=== PATIENT | male | born 1950 | race Caucasian/White ===

== ENCOUNTER 2016-10-13 07:39 | Inpatient (IN) | payer OTHER ==
--- NOTE | 2016-10-07 17:44 | GHP ---
[f rep st] PREOP HISTORY AND PHYSICAL DATE OF ADMISSION: 10/13/2016 The patient will be an a.m. admission for surgery at [facility] on Thursday, October 13, 2016. PROBLEM: Status post infected left total hip arthroplasty. HISTORY OF PRESENT ILLNESS: The patient is a 66-year-old man on whom I originally performed a left t otal hip arthroplasty on January 28, 2015. In February of 2016, he developed a groin abscess on the left si de. He had an ultrasound aspiration of the groin abscess which was positive for E coli. He received a course of oral antibiotics without any improvement. Eventually, the groin pain progressed to hip pain. A subsequent aspiration of the hip joint was positive for E coli. On March 24, 2016, he underw ent surgery for the infected left total hip. His implants were removed, and I inserted a temporary a ntibiotic-impregnated endoprosthesis. His organism was E coli. It was sensitive to all antibiotics. He was treated for 6 weeks with ceftriaxone. He was followed by Dr. Alphonse Nunes. Following the intr avenous ceftriaxone, he underwent 6 weeks of oral antibiotics. His wounds have healed. In addition to debridement and implant removal, Dr. Wily Campoverde did drainage of a psoas abscess anteriorly. Hi s lab work has normalized. He has had 2 aspirations of the left hip which were culture-negative. He is having moderate pain in the hip with ambulation. By the best available information, I think his hip is infection-free. He will undergo revision surgery. PAST MEDICAL HISTORY: He is treated for anxiety disorder. He has chronic low back pain. He has bee n treated for necrotizing fasciitis of his left upper extremity. No history of pulmonary embolism, h eart disease, or DVT. CURRENT MEDICATIONS: Adderall 20 mg per day. He recently started on an androgen gel. Valium 10 mg as needed. Hydrochlorothiazide 25 mg as needed for hypertension. He is taking morphine IR and morph ine extended release for chronic low back pain. He is followed by the [facility] at the hospital. DRUG ALLERGIES: None. SOCIAL HISTORY: The patient is . He lives in [place], [place]. He is retired. He is smoking a pipe. Moderate alcohol consumption. FAMILY HISTORY: Positive for cancer. PHYSICAL EXAMINATION: GENERAL: He is a frail-appearing man. Height 5 feet 9 inches. Weight 140 po unds. BMI 20.7. He has a cachectic appearance. EYES: The conjunctivae and sclerae are clear. His pupils are equal. MOUTH: Fair oral hygiene. CH EST: Clear. HEART: Regular rhythm. No murmurs. EXTREMITIES: Pertinent findings limited to his l eft hip. His wounds are completely healed. He has 110 degrees of hip flexion. IMPRESSION ON ADMISSION: 1. Status post infected left total hip arthroplasty. He has a temporary prosthesis. He will underg o revision surgery. 2. Chronic back pain and chronic pain syndrome, on long-term narcotics. 3. Anxiety disorder. 4. History of necrotizing fasciitis of the left upper extremity. PLAN: He will undergo revision surgery. Depending on the findings at the time of revision and how d ifficult it is to get the temporary prosthesis out, I am either going to use a cemented femoral stem with antibiotic-impregnated cement or a modular oriental orthodox revision femoral stem. The surgery has been described to the patient and his including the risks, complications, expect ations, and recovery time. I have advised him that this is more complicated surgery than his origina l operation and it has higher risks and complications. All their questions have been answered, and susi espinoza consents to surgery. /[id number]/MODL
--- NOTE | 2016-10-11 11:17 | CPEKG ---
Heart Rate: 79 RR Interval: 759 P-R Interval: 152 QRSD Interval: 74 QT Interval: 352 QTC Interval: 404 P [place]: 3 QRS [place]: -48 T Wave [place]: 53 EKG Severity - ABNORMAL ECG - EKG Impression: SINUS RHYTHM EKG Impression: LEFT ANTERIOR FASCICULAR BLOCK Electronically Signed By: Ivan Rodriguez 11-Oct-2016 15:42:25
[2016-10-11 11:45] LABS: % IMMATURE GRANULYOCYTES 0.2 % (0.0-1.1); ABSOLUTE IMMATURE GRANULOCYTES 0.01 10^3/uL (0.00-0.10); ADD DIFF? NO; ADD MORPH? NO; ADD SCAN? NO; ATYPICAL LYMPHOCYTE FLAG 20 (0-99); FRAGMENT RBC FLAG 0 (0-99); HEMATOCRIT 37.6 % (40.0-51.0); HEMOGLOBIN 12.8 g/dL (13.7-17.5); LEFT SHIFT FLG 0 (0-99); LIPEMIA HEMOLYSIS FLAG 90 (0-99); MEAN CELL HEMOGLOBIN 32.3 pg (27.9-34.1); MEAN CELL VOLUME 94.9 fL (81.5-99.8); MEAN PLATELET VOLUME 8.8 fL (8.7-11.7); PLATELET CLUMPS FLAG 0 (0-99); PLATELET COUNT 182 10^3/uL (150-400); RED BLOOD CELL COUNT 3.96 10^6/uL (4.40-6.38); RED CELL DISTRIBUTION WIDTH 13.8 % (11.5-15.2)
[2016-10-11 11:56] LABS: ANION GAP 8 mEq/L (8-16); CALCIUM 9.2 mg/dL (8.5-10.4); CARBON DIOXIDE 29 mEq/l (22-31); CHLORIDE 100 mEq/L (97-110); CREATININE 1.1 mg/dL (0.7-1.3); GLOMERULAR FILTRATION RATE > 60; POTASSIUM 4.3 mEq/L (3.5-5.2); SODIUM 137 mEq/L (134-144)
[2016-10-11 12:22] LABS: GLUCOSE 100 mg/dL (70-100)
[~2016-10-13 07:39] MED LIST: ACETAMINOPHEN 325 MG TAB ONE; ACETAMINOPHEN 325 MG TAB PO ONE; CEFAZOLIN 2 GM/DEXTR 100 ML IV ONE; CEFAZOLIN 2 GM/DEXTROSE/100 ML BAG IV ONE; CHLORHEXIDINE GLUC HIBICLENS 118 ML BTL TP ONE; DEXAMETHASONE 4 MG/ML VIAL IVP ONE; DEXAMETHASONE 4 MG/ML VIAL ONE; FAMOTIDINE 20 MG TAB ONE; FAMOTIDINE 20 MG TAB PO ONE; NS IV ONE; POVIDONE-IODINE 20 ML in SODIUM CL IRRIG SOLUTION 500 ML IRR ONE; ROPI/epiNEPH/KETOROLAC JOINT COCKTAIL IU ONE; TRANEXAMIC ACID IV ONE
[2016-10-13] MEDS ORDERED: LIDOCAINE 1% 5 ML SDV ID PRN (07:52)
[2016-10-13] MEDS ORDERED: LR 1,000 ML IV ONE (07:52)
[2016-10-13] MEDS ORDERED: SKIN ADHESIVE (DERMABOND) 1 EACH TP ONE (09:17)
[2016-10-13] MEDS ORDERED: ceFAZolin 1 GM/5 ML SYR ONE (09:18)
[2016-10-13] MEDS ORDERED: MIDAZOLAM 2 MG/2 ML VIAL ONE (09:26)
[2016-10-13] MEDS ORDERED: PROPOFOL/EMULSION 500 MG/50 ML BOTTLE IV ONE (09:43)
[2016-10-13] MEDS ORDERED: KETAMINE 100 MG/10 ML SYR IVP ONE (09:43)
[2016-10-13] MEDS ORDERED: PROPOFOL 200 MG/20 ML VIAL ONE ×2 (09:43→11:31)
[2016-10-13] MEDS ORDERED: DEXAMETHASONE 4 MG/ML VIAL ONE (10:05)
[2016-10-13] MEDS ORDERED: ONDANSETRON 4 MG/2 ML VIAL ONE (10:05)
[2016-10-13] MEDS ORDERED: GLYCOPYRROLATE 0.2 MG/1 ML VIAL ONE (10:05)
[2016-10-13] MEDS ORDERED: ROCURONIUM 50 MG/5 ML VIAL ONE (10:05)
[2016-10-13] MEDS ORDERED: HYDROmorphONE/DILAUDID 2 MG/ML SYR ONE ×4 (10:19→12:37)
[2016-10-13] MEDS ORDERED: SUGAMMADEX SODIUM 200 MG/2 ML VIAL IVP ONE (11:44)
--- NOTE | 2016-10-13 11:48 | POSTOPPROG ---
Post Op Note Date of Operation: 10/13/16 Surgeon: Demetrius Holloway Child Care Specialist: Johnny/Mily Anesthesiologist: Maynor Anesthesia: GET(General Endotracheal) Post-op Diagnosis: s/p infected MAYELIN Procedure: second stage revision MAYELIN Inf/Abcess present in the surg proc area at time of surgery?: No EBL: 100500
[2016-10-13] MEDS ORDERED: DIAZEPAM 10 MG TAB PO PRN (11:54)
[2016-10-13] MEDS ORDERED: PROMETHAZINE HCL 25 MG/ML VIAL IVP PRN (11:56)
[2016-10-13] MEDS ORDERED: oxyCODONE IR 5 MG TAB PO PRN (11:56)
[2016-10-13] MEDS ORDERED: MAGNESIUM HYDROXIDE 30 ML UDCUP PO PRN (11:56)
[2016-10-13] MEDS ORDERED: TEMAZEPAM 15 MG CAP PO PRN (11:56)
[2016-10-13] MEDS ORDERED: BISACODYL 10 MG SUPP PR PRN (11:56)
[2016-10-13] MEDS ORDERED: LACTULOSE 20 GM/30 ML UDCUP PO PRN (11:56)
[2016-10-13] MEDS ORDERED: KETOROLAC 30 MG/1 ML SDV IVP PRN (11:56)
[2016-10-13] MEDS ORDERED: PROMETHAZINE HCL 25 MG SUPPR PR PRN (11:56)
[2016-10-13] MEDS ORDERED: DIPHENOXYLATE/ATROPINE LOMOTIL 1 TAB PO PRN (11:56)
[2016-10-13] MEDS ORDERED: PHARMACY PAIN CONSULT 1 EA MISC PRN (11:56)
[2016-10-13] MEDS ORDERED: diphenhydrAMINE 25 MG CAP PO PRN (11:56)
[2016-10-13] MEDS ORDERED: METOCLOPRAMIDE 10 MG/2 ML VIAL IVP PRN (11:56)
[2016-10-13] MEDS ORDERED: ONDANSETRON 4 MG/2 ML VIAL IVP PRN (11:56)
[2016-10-13] MEDS ORDERED: ONDANSETRON DISINTEGRATING 4 MG TAB PO PRN (11:56)
[2016-10-13] MEDS ORDERED: POLYETHYLENE GLYCOL 3350 17 GM PKT PO PRN (11:56)
[2016-10-13] MEDS ORDERED: NS 500 ML IV PRN (11:56)
[2016-10-13] MEDS ORDERED: LR 1,000 ML IV SCH (12:00)
[2016-10-13] MEDS ORDERED: HYDROmorphONE/DILAUDID 1 MG/ML SYR ONE (12:21)
[2016-10-13] MEDS ORDERED: fentaNYL 100 MCG/2 ML INJ ONE ×2 (12:28→12:37)
--- NOTE | 2016-10-13 12:52 | GOP ---
[f rep st] OPERATIVE REPORT DATE OF OPERATION: 10/13/2016 SURGEON: Demetrius Holloway MD PLUG ASSEMBLER: Waldemar Turner and Rodger Minor. ANESTHESIA: General. ANESTHESIOLOGIST: Dr. Litzy Mcguire. PREOPERATIVE DIAGNOSIS: Status post infected left total hip arthroplasty. POSTOPERATIVE DIAGNOSIS: Status post infected left total hip arthroplasty. PROCEDURE PERFORMED: 10/13/2016: Second-stage revision of infected left total hip arthroplasty. FINDINGS: SPECIMENS: In addition to culturing the fluid, I removed some of the fibrous tissue in the medullary canal of the femur and also sent that for aerobic and anaerobic cultures. ESTIMATED BLOOD LOSS: About 400 mL. DESCRIPTION OF PROCEDURE: The patient was given 2 g of IV Ancef preoperatively within 60 minutes of surgery. He also received IV tranexamic acid at a dose of 20 mg/kg. He was placed on the operating room table and given general anesthesia by Dr. Litzy Mcguire. A Ordonez catheter was not used. He wore a SIDNEY stocking and SCD on the nonoperative leg. He was rolled to the right lateral decubitus positio n. The position was secured with the pegboard table attachment. An axillary roll was used and all p ressure points were carefully padded. He has a painful right shoulder with a deficient rotator cuff. I was very careful about how I positioned him and how I padded his arm and shoulder. I was careful to lock his pelvis in a rigid vertical position. His perineum was isolated with plastic adhesive dr quigley. The left hip and left lower extremity were prepped with ChloraPrep. They were draped free usi ng sterile sheets, stockinette, and Ioban plastic drape. The World Health Organization time-out was performed to verify the correct surgical side and the [facility] patient identity. The [place] time-out was also performed. I reopened his original surgical incision which was about 6 or 7 inches long. This was a posterior l ateral incision. Subcutaneous tissues were sharply divided and hemostasis was obtained using electro cautery. He had a very thin layer of subcutaneous fat. His fascia giuseppe was identified and split tiffany ng the axis of its fibers. I curved posteriorly and proximally and split the fascia of the gluteus m aximus and bluntly split the muscle fibers. The fascia giuseppe and the gluteus zan were scarred jose n to the lateral greater trochanter area. This had to be dissected free and mobilized. I then devel oped my dissection right along the posterior margin of the greater trochanter. His sciatic nerve was encompassed in scar tissue posteriorly. I did not make any effort to isolate it or expose it, but I did keep my dissection away from its location. I divided the scarred external rotators and the post erior capsule as a single layer. There was a large quantity of clear yellow synovial fluid in the hi p joint. This fluid was cultured for aerobic and anaerobic organisms and for Gram stain. An 8 inch Steinmann pin was inserted vertically into the ilium superior to the acetabulum. A 10/10 inc h drill bit was inserted vertically into the greater trochanter and parallel to the 1st pin. The dis tance between the two was measured for leg length reference. The temporary prosthetic head was dislo cated posteriorly. I immobilized some of the capsule in order to expose the proximal end of the femu r. I used a bone tamp and a mallet against the undersurface of the temporary prosthesis. I was able to wiggle it loose. I then with careful tapping was able to back out the temporary prosthesis. Whe n I inserted it, I only put a small cement mantle around the proximal portion. It looked like most o f the cement came out on the stem of the temporary prosthesis. There was a small amount of cement di stally. I used the reverse cutting curettes to remove that cement. I was using the [employer] modular anabaptist stem system. I reamed distally to 19 mm. I then inserte d the 19 mm diameter x 155 mm distal component. At this point, I went back to the acetabulum. Appropriate retractors were inserted to expose the josette tabulum. I removed scarred capsule from around the periphery of the acetabulum. I then started ream ing the acetabulum beginning at 58 mm. It was not necessary to deepen it. I was simply enlarging it and trying to get to a fresh raw cancellous surface. I ended up reaming it up to 67 mm. I selected the 68 mm Millen Trident hemispherical titanium shell. This was tapped securely into place in the proper degree of inclination and anteversion. It was a good tight fit. I inserted a 30 mm, a 25 mm and a 20 mm supplemental fixation screw. A flush trial liner was inserted. I then went back and fin ished the femur. I reamed the proximal femoral canal. I selected the 25 mm proximal component with a +10 mm length. This was tapped securely onto the distal component. I dialed in between 10 and 15 degrees of antever jeramy. I did a trial reduction with a +5 mm neck, 36 mm head. The hip was very stable anteriorly and posteriorly. I like the amount of anteversion. He was short preoperatively, and I was intentionall y lengthening him. I then went back and inserted the actual acetabular liner. This had an outside diameter of 68 mm and an inside diameter of 36 mm. The locking screw was inserted to lock the proximal portion of the femoral component to the distal co mponent. I did 1 final trial reduction and confirmed that the +5 mm neck length with the 36 mm head was the proper combination. The actual 36 mm Millen Otwell chrome LFIT head component with a +5 mm neck length was tapped secure ly onto the clean trunnion. The wound and the acetabulum were thoroughly irrigated and cleaned. The hip was reduced 1 final time. I did 1 final check for stability and length and found it very suitab le. The wound was thoroughly irrigated with a dilute Betadine solution. 40 mL of the joint anesthetic co cktail were injected into the subcutaneous tissues around the incision and in the deep musculature. I repaired the combined layer of external rotators and scarred capsule with two #2 FiberWire sutures tied through drill holes in the greater trochanter. His fascia giuseppe was closed with a running #2 bar bed Ethicon Stratafix PDO suture. The subcutaneous tissues were closed with a running 0 barbed Ethic on Stratafix Monoderm suture. The skin was closed with a running 3-0 barbed Ethicon Stratafix Monode rm subcuticular suture. The skin edges were reapproximated and sealed with Dermabond glue. The woun d was covered with a strip of Telfa and everything was held in place with a piece of clear plastic Te gaderm. A SIDNEY stocking and SCD were placed on his left lower extremity. He wore stocking and SCD on the oppo site leg during the procedure. An abduction pillow was placed between his knees. He was awakened fr om anesthesia and rolled to the supine position on his gurney. He was taken to PACU in satisfactory condition. There were no recognized intraoperative complications. COUNTS: The sponge and needle counts were correct on 2 occasions. IMPLANTS: I used a [employer] modular anabaptist system. The acetabulum had an outside diameter of 68 mm. The liner was a 36 mm inside diameter and a flush mount. The distal portion of the femoral com ponent was 155 mm in length and 19 mm in diameter. The proximal portion was 70 mm in length and 25 m m in diameter with a +10 mm proximal length. The femoral head component was a 36 mm Otwell chrome he ad with a +5 mm neck length. Waldemar Turner and Rodger Minor acted as surgical assistants. Their assistance was a medical necess ity. Copy requested to: Tyrone Sanders /[id number]/MODL
[2016-10-13] MEDS: ACETAMINOPHEN 325 MG TAB PO SCH ×2 (13:39→17:07)
[2016-10-13] MEDS: ADDERALL 20 MG TAB PO SCH ×2 (13:40→17:07)
[2016-10-13] MEDS: morphINE SR 15 MG TAB PO SCH ×2 (13:41→20:52)
[2016-10-13] MEDS: morphINE IR 30 MG TAB PO PRN ×3 (13:59→20:51)
[2016-10-13] MEDS: ceFAZolin 2 GM/DEXTROSE 100 ML IV SCH ×2 (14:01→21:01)
--- NOTE | 2016-10-13 15:02 | DX ---
Portable AP Pelvis, 2 Views, at 1:16 p.m. Clinical History: 66-year-old male with a prior infection, undergoing a revised left hip arthroplasty . Comparison Studies: Pelvis, dated March 24, 2016 and January 28, 2015. Findings: The patient has undergone a replacement left hip arthroplasty with anatomic alignment of t he femoral and acetabular components. The intramedullary apple is well-centered. The acetabular compone nt is secured by a cortical retention screw directed into the iliac bone. There is normally expected postoperative air in the soft tissues. There is severe right hip osteoarthritis with mild lateral fem oral head uncovering. The bones are demineralized. There is some degenerative change on the left at L 5-S1. Impression: 1. Status post left hip arthroplasty, with anatomic alignment. 2. Severe right hip osteoarthritis. with mild lateral femoral head uncovering. 3. Bone demineralization. A DEXA scan may be of benefit for better quantitative assessment, as clinic ally directed.
[2016-10-13] MEDS: TRANEXAMIC ACID 650 MG TAB PO SCH ×3 (15:14→21:01)
[2016-10-13] MEDS: morphINE SR 30 MG TAB PO SCH (15:14)
[2016-10-13] MEDS: ASPIRIN 325 MG TAB PO SCH (20:51)
[2016-10-13] MEDS: FAMOTIDINE 20 MG TAB PO SCH (20:52)
[2016-10-13] MEDS: SENNOSIDES/DOCUSATE SODIUM TAB PO SCH (20:52)
[2016-10-14] MEDS ORDERED: DIAZEPAM 5 MG TAB PO PRN (00:34)
[2016-10-14] MEDS: morphINE SR 30 MG TAB PO SCH ×2 (00:38→08:45)
[2016-10-14] MEDS: ACETAMINOPHEN 325 MG TAB PO SCH ×3 (00:39→11:52)
[2016-10-14] MEDS: morphINE SR 15 MG TAB PO SCH ×2 (04:10→11:51)
[2016-10-14 06:08] LABS: HEMATOCRIT 24.8 % (40.0-51.0); HEMOGLOBIN 8.8 g/dL (13.7-17.5)
--- NOTE | 2016-10-14 07:25 | SOAPPROG ---
SOAP Progress Note Assessment/Plan: Assessment: Awake and alert. Moderate pain. Has stood in room. H/H is 8.8/24.8 Dsg is dry. Sciatic nerve intact. Films look good. Plan: Up with PT. DC later today. 10/14/16 07:24 Objective: Vital Signs Temp Pulse Resp BP Pulse Ox 36.8 C 81 16 123/71 H 93 10/14/16 04:15 10/14/16 04:15 10/14/16 04:15 10/14/16 04:15 10/14/16 04:15 Microbiology 10/13/16 10:25 Gram Stain - Final Hip - Tissue 10/13/16 10:25 Gram Stain - Final Hip - Eswab Laboratory Results 10/14/16 04:56 10/11/16 11:27 10/13/16 10/14/16 10/15/16 05:59 05:59 05:59 Intake Total 3660 Output Total 600 Balance 3060 ICD10 Worksheet Patient Problems: Problems Problem Status Diagnosed Infection of prosthetic total hip joint Acute Primary osteoarthritis of left hip Acute
--- NOTE | 2016-10-14 07:31 | PDIAF ---
- Diagnosis Diagnosis: infected left hip arthroplasty Code Status: Full Code - Medication Management Discharge Medications: Medications to Continue on Transfer Amphet Asp and D/Amphet [Adderall 20 mg (*)] 20 mg PO TID@,,09/30/16 [ Last Taken 10/13/16 06:30] Cholecalciferol Vit D3 [Vitamin D3 (*)] 10,000 units PO DAILY 09/30/16 [Last Taken 10/07/16] Diazepam [Valium 10 MG (*)] 10 mg PO Q6HRS PRN 09/30/16 [Last Taken 10/13/16 07: 30] Herbals/Supplements -Info Only 1 ea PO DAILY 09/30/16 [Last Taken 10/07/16] Hydrochlorothiazide [HCTZ (*)] 25 mg PO DAILY 09/30/16 [Last Taken 10/11/16] Testosterone [ANDROGEL 1% 5gm pkt (*)] 5 gm TD DAILY 09/30/16 [Last Taken 14:30] buPROPion XL [Wellbutrin 150mg XL] 150 mg PO DAILY 09/30/16 [Last Taken 09/29/16 ] morphINE IR [morphINE IR 30 mg (*)] 30 - 60 mg PO Q2HRS PRN 09/30/16 [Last Taken 10/13/16 06:30] morphINE SR [MS Contin/Oramorph SR 30 mg (*)] 30 mg PO TID@00,08,16 09/30/16 [ Last Taken 10/11/16] morphINE SR [Ms Contin/Oramorph 15 mg (*)] 15 mg PO TID@04,,09/30/16 [Last Taken 10/11/16] Acetaminophen [Tylenol 325mg (*)] 650 mg PO Q6HRS #0 tab 10/14/16 [Last Taken Unknown] Aspirin [Aspirin 325 mg (*)] 325 mg PO DAILY #21 tab 10/14/16 [Last Taken Unknown] Ferrous Sulfate [Slow Fe 140 MG (*)] 140 mg PO DAILY #30 tab.er 10/14/16 [Last Taken Unknown] Ondansetron Odt [Zofran Odt 4 mg (*)] 4 mg PO Q4HRS PRN #0 tab 10/14/16 [Last Taken Unknown] oxyCODONE IR [Oxycodone Ir (*)] 5 - 10 mg PO Q3HRS PRN #0 tab 10/14/16 [Last Taken Unknown] Discharge Medications: Refer to the Discharge Home Medication list for PRN reason. PICC Care - Routine: N/A - Orders Services needed: Home Care, Physical Therapy Home Care Face to Face: I certify that this patient was under my care and that I had the required [id number] encounter meeting the encounter requirements on the discharge day. My findings support the fact that the patient is homebound as defined in CMS Chapter 7 Medicare Benefits Manual 30.1.1, The condition of the patient is such that there exists a normal inability to leave home and consequently, leaving home would require a considerable and taxing effort. Diet Recommendation: no restrictions on diet Diet Texture: Regular Texture Diet Ordonez: Not applicable Alek Stockings Discontinue Date: 1 week Wound Care Instructions: keep clean and dry. You may shower. Activity/Weight Bearing Restrictions: as tolerated. - Follow Up Care Current Providers and Referrals: Tyrone Mercado MD [Primary Care Provider] - Demetrius Holloway MD [Medical Doctor] - 11/04/16 11:15 am
[2016-10-14] MEDS: ADDERALL 20 MG TAB PO SCH ×2 (08:44→11:51)
[2016-10-14] MEDS: ASPIRIN 325 MG TAB PO SCH (08:45)
[2016-10-14] MEDS: TRANEXAMIC ACID 650 MG TAB PO SCH (08:46)
[2016-10-14] MEDS: FAMOTIDINE 20 MG TAB PO SCH (08:46)
[2016-10-14] MEDS: SENNOSIDES/DOCUSATE SODIUM TAB PO SCH (08:46)
[2016-10-14] MEDS: morphINE IR 30 MG TAB PO PRN ×2 (08:52→11:52)
[2016-10-14] MEDS ORDERED: FERROUS SULFATE 140 MG TAB.ER PO SCH (09:00)
[2016-10-14] MEDS ORDERED: buPROPion XL 150 MG TAB PO SCH (09:00)
[2016-10-14] MEDS ORDERED: CHOLECALCIFEROL VIT D3 2,000 UNITS TAB/CAP PO SCH (09:00)
[2016-10-14] MEDS ORDERED: CHOLECALCIFEROL VIT D3 1,000 UNITS TAB PO SCH (09:00)
[2016-10-14] MEDS ORDERED: HYDROCHLOROTHIAZIDE 25 MG TAB PO SCH (09:00)
[2016-10-14] MEDS ORDERED: TESTOSTERONE 1% 5 GM GEL PKT TD SCH (09:00)
[2016-10-14] MEDS ORDERED: Herbals/Supplements -Info Only PO SCH (09:00)
--- NOTE | 2016-10-14 09:45 | GDS ---
[f rep st] DISCHARGE SUMMARY ADMISSION DIAGNOSIS: Status post infected left total hip arthroplasty. DISCHARGE DIAGNOSIS: Status post infected left total hip arthroplasty. OPERATION PERFORMED: Second stage of two-stage left total hip arthroplasty revision for infection. POSTOPERATIVE COMPLICATIONS: None. CONDITION ON DISCHARGE: Improved. DESCRIPTION OF HOSPITAL COURSE: The patient was admitted to the hospital on the morning of surgery. His admission hemoglobin and hematocrit were 12.8 and 37.6. Admission white blood cell count was 46 00. BUN, creatinine, and electrolytes were normal. The same day, under general anesthesia, he under went the 2nd stage of a two-stage revision of his infected left total hip arthroplasty. Postoperativ ankush, he was treated with multimodal DVT prophylaxis, including aspirin. On the 1st postoperative day , his hemoglobin and hematocrit were 8.8 and 24.8. He was hemodynamically stable and did not require transfusion. He was seen by physical therapy and made satisfactory progress with ambulation. By th e time of discharge, he was afebrile, his wound was clean and dry, and he was independent walking wit h a walker. DISPOSITION: The patient is discharged to his home. He will have home physical therapy. He may pro jimbo to full weightbearing on the left as tolerated. Continue aspirin 325 mg p.o. daily for 21 days . Continue iron for 30 days. Use an abduction pillow in bed for 3 weeks. Use SIDNEY stockings for 1 w ramona. He has prescriptions for oxycodone and tramadol for pain control. This is in addition to the o ther long-acting morphine that he takes for chronic back pain. I will see him back in the office on November 04, 2016. If there are any problems, he is to call me at the office. /[id number]/MODL
[2016-10-14 11:27] VITALS: BP 153/84; PULSE 84; RESP 16; TEMP 99; O2SAT 94
--- NOTE | 2016-10-18 15:43 | PQFORM ---
H PHYSICIAN QUERY FORM Needs Your Response This query form is being sent to you to assure this patient record is coded properly. Please respond to the question below: SOLAR INSTALLER TECHNICIAN QUESTION: Dr. Holloway, In this patient admitted for the second stage of a two-stage left total hip arthroplasty revision, the discharge summary reveals the following: Admission hemoglobin and hematocrit were 12.8 and 37.6 Post op day #1 hemoglobin and hematocrit were 8.8 and 24.8 Discharge orders include iron supplementation Can a diagnosis be provided that reflects the above listed clinical indicators? Many thanks, RAHAT Coats [facility]/Coding Department INSTRUCTIONS FOR RESPONSE: Answer question by clicking on the "Edit Document" button. Move cursor to area below the stars. When complete, hit "Save." Click on the "Sign" button, then click "Sign" again. Type in your PIN and hit "Enter." He was anemic preoperatively, probably secondary to chronic illness and blood loss from the first stage operation for his revision. He was anemic at discharge secondary to surgical blood loss. He was given iron at discharge to help him rebuild his red blood cell levels. Let me know if you need more information. Dr. Jewel ROMERO
== END 2016-10-14 13:26 | disposition home health service (06) | DRG 467 ==
LOC: F3N 07:39
PROVIDERS: ADMIT Orthopaedic Surgery; ATTEND Orthopaedic Surgery
PROC: 0SRB02A Replacement of Left Hip Joint with Metal on Polyethylene Synthetic Substitute, Uncemented, Open Approach (ICD-10-PCS; principal; 2016-10-13 09:15)
PROC: 0SPB08Z Removal of Spacer from Left Hip Joint, Open Approach (ICD-10-PCS; principal; 2016-10-13 09:15)
DX: Z47.32 Aftercare following explantation of hip joint prosthesis (principal); Z89.622 Acquired absence of left hip joint; D62 Acute posthemorrhagic anemia; M54.5 Low back pain; Z79.891 Long term (current) use of opiate analgesic; F90.0 Attention-deficit hyperactivity disorder, predominantly inattentive type; E29.1 Testicular hypofunction; F41.9 Anxiety disorder, unspecified; Z72.0 Tobacco use
CPT/HCPCS: 97116-GP; 97161-GP; 97165-GO; C1713; G8978-GP-CI; G8978-GP-CJ; G8979-GP-CI; G8980-GP-CI; G8987-GO-CI; G8988-GO-CI; G8989-GO-CI; J0171; J0690; J1100; J1170; J1885; J2250; J2405; J2704; J2795; J3010

== ENCOUNTER → 2016-12-01 | Outpatient (CLI) | payer OTHER | LOC: BMCIMAGING 09:59 | PROVIDERS: ATTEND Internal Medicine Endocrinology, Diabetes & Metabolism | DX: Z13.820 Encounter for screening for osteoporosis (principal); M81.0 Age-related osteoporosis without current pathological fracture ==

== ENCOUNTER 2017-02-04 17:02 | Emergency (ER) | payer OTHER ==
[2017-02-04 17:16] VITALS: TEMP 97.7
[2017-02-04] MEDS ORDERED: HYDROmorphONE/DILAUDID 1 MG/ML SYR IVP ONE (17:26)
--- NOTE | 2017-02-04 17:29 | EDPHY ---
H & P Smoking Status: Light smoker Time Seen by Provider: 02/04/17 17:05 HPI/ROS: CHIEF COMPLAINT: Left hip dislocation HISTORY OF PRESENT ILLNESS: This is a 66-year-old male presenting to the emergency department via EMS. Patient states that he was sitting in his chair twisted and felt his left hip pop out of place. Patient states initial left hip prosthetic was placed in 2014 for degenerative arthritis disease, additional surgery 4 months ago for infection. Patient states he has not had any problems additionally this is the 1st time he has had this happen. Denies any fall or any new injuries. REVIEW OF SYSTEMS: Constitutional: No fever, no chills. Eyes: No blurred vision Cardiovascular: No chest pain, no palpitations. Respiratory: no shortness of breath. Gastrointestinal: No abdominal pain Musculoskeletal: No back pain. Left hip pain Skin: No rashes. Neurological: No headache. (Alexsandra Marquez) Past Medical/Surgical History: Past medical history significant for hip replacement and then hardware was removed because of infection. New hip replacement was done in October (Alphonse Pedro) Social History: , daily smoker, no alcohol (Alphonse Pedro) Physical Exam: General Appearance: Alert, no distress. Eyes: no pallor or injection. ENT, Mouth: Mucous membranes moist. Respiratory: Nonlabored respiratory effort Gastrointestinal: Abdomen is soft and nontender Neurological: No focal deficits Skin: Warm and dry, no rashes. Musculoskeletal: Neck is supple nontender. Left lower extremity internal rotation, left hip obvious deformity positive distal CMS intact Extremities: Upper extremities symmetrical, full range of motion. Decreased range of motion in left lower extremity positive CMS intact Psychiatric: Patient is oriented X 3, there is no agitation. (Alexsandra Marquez) Left lower extremity is shortened. Distal motor vascular sensitivity is intact (Alphonse Pedro) Constitutional: Initial Vital Signs Temperature (C) 36.5 C 02/04/17 17:13 Heart Rate 82 02/04/17 17:13 Respiratory Rate 18 02/04/17 17:13 Blood Pressure 152/86 H 02/04/17 17:13 O2 Sat (%) 93 02/04/17 17:13 O2 Delivery Mode [Post Nasal Cannula Procedure 2nd] O2 Delivery Mode [Post Non-Rebreather Mask Procedure 1st] O2 Delivery Mode [Procedural Non-Rebreather Mask 1st] O2 Delivery Mode Room Air O2 (L/minute) [Post Procedure 3 2nd] O2 (L/minute) [Post Procedure 15 1st] O2 (L/minute) [Procedural 1st] 15 O2 (L/minute) 3 Allergies/Adverse Reactions: No Known Allergies Allergy (Verified 10/07/16 13:23) Home Medications: Medication Instructions Recorded Amphet Asp and D/Amphet [Adderall 20 mg PO TID@08,12,17 09/30/16 20 mg (*)] Cholecalciferol Vit D3 [Vitamin D3 10,000 units PO DAILY 09/30/16 (*)] Diazepam [Valium 10 MG (*)] 10 mg PO Q6HRS PRN 09/30/16 Herbals/Supplements -Info Only 1 ea PO DAILY 09/30/16 Hydrochlorothiazide [HCTZ (*)] 25 mg PO DAILY 09/30/16 Testosterone [ANDROGEL 1% 5gm pkt 5 gm TD DAILY 09/30/16 (*)] buPROPion XL [Wellbutrin 150mg XL] 150 mg PO DAILY 09/30/16 morphINE IR [morphINE IR 30 mg (*)] 30 - 60 mg PO Q2HRS PRN 09/30/16 morphINE SR [MS Contin/Oramorph SR 30 mg PO TID@00,08,16 09/30/16 30 mg (*)] morphINE SR [Ms Contin/Oramorph 15 15 mg PO TID@04,12,20 09/30/16 mg (*)] Acetaminophen [Tylenol 325mg (*)] 650 mg PO Q6HRS #0 tab 10/14/16 Aspirin [Aspirin 325 mg (*)] 325 mg PO DAILY #21 tab 10/14/16 Ferrous Sulfate [Slow Fe 140 MG 140 mg PO DAILY #30 tab.er 10/14/16 (*)] Ondansetron Odt [Zofran Odt 4 mg 4 mg PO Q4HRS PRN #0 tab 10/14/16 (*)] oxyCODONE IR [Oxycodone Ir (*)] 5 - 10 mg PO Q3HRS PRN #0 tab 10/14/16 Medical Decision Making - Diagnostics Imaging Results: Imaging Impressions Hip X-Ray 02/04/17 17:10 Impression: Dislocated prosthetic left hip. Hip X-Ray 02/04/17 18:13 Impression: 1. Closed reduction of dislocated prosthetic left hip. 2. Avulsion fracture, lateral margin of left acetabulum. 3. Moderately severe degenerative arthritis of right hip. Post reduction x-ray shows good anatomic position. The a full soon fracture was noted to be present on pre surgery and hip replacement x-rays (Alphonse Pedro) Procedures: Procedure: Dislocation reduction. The left hip was reduced by Dr. Pedro without complications. Patient received 50 mg propofol. Post reduction the patient's neurovascular exam is normal. Post reduction x-ray demonstrates reduction of the joint to the anatomic position. (Alexsandra Marquez) ED Course/Re-evaluation: Discussed the plan of care: X-ray left hip, [place]. Reviewed old medical records and surgery report Assisted Dr. Pedro with hip reduction, successful. Post reduction films performed left hip proper placement good CMS intact 1855: Patient is AAOx3, not in any distress, patient reports feeling much better 1/10 pain which is tolerable for him. No chest pain or shortness of breath. Discussed follow-up with Dr. Holloway. Patient's stated she already call them today and has an appointment set up with him for next week. Discharge home---> stable. Ambulatory with antalgic gait (Alexsandra Marquez) Procedure: Conscious sedation. Indication: Hip dislocation I was asked by SOLOMON Marquez to perform procedural sedation. The patient is an appropriate candidate to tolerate procedural sedation. The patient's vital signs and mental status are appropriate. The risks, benefits and alternatives of the sedation were discussed with the patient. The patient is ASA classification 3. The patient's Mallampati airway score was 2 and the patient did meet the 3-3-2 airway measurements. A time out was completed. The patient was sedated with propofol 50 mg IV. The patient was monitored with continuous pulse oximetry, clinical research monitor and end tidal CO2. There were no complications and no significant hypoxemia. I performed both the sedation and the procedure. The total time I spent at the bedside during the procedural sedation was 15 minutes. The patient was examined after the procedural sedation and has returned to their pre-sedation baseline with normal vital signs and a normal examination. (Alphonse Pedro) Differential Diagnosis: Other differential diagnosis considered but not limited to hip fracture, pelvic fracture, hardware malfunction and ligamentous injury (Alexsandra Marquez) - Data Points Medications Given: Discontinued Medications Hydromorphone HCl (Dilaudid) 1 mg IVP EDNOW ONE Stop: 02/04/17 17:27 Last Admin: 02/04/17 17:35 Dose: 1 mg Propofol (Diprivan) 50 mg IVP EDNOW ONE Stop: 02/04/17 18:37 Last Admin: 02/04/17 18:10 Dose: 50 mg Departure - Departure Disposition: Home, Routine, Self-Care Clinical Impression: Hip dislocation, left Qualifiers: Encounter type: initial encounter Qualified Code(s): S73.005A - Unspecified dislocation of left hip, initial encounter Condition: Good Instructions: Hip Dislocation (ED) Additional Instructions: Discussed discharge instructions with patient 1. Your left hip was initially out of place, we were able to place hip joint and proper anatomical position without complications. We reviewed proper body mechanics to prevent further dislocation. 2. Follow up with Dr. Holloway office next week, and primary care physician Dr. Mercado as needed 3. You have pain medicines at home take them as needed Referrals: Patient,NotPresent [Unknown] - As per Instructions Demetrius Holloway MD [Medical Doctor] - As per Instructions Tyrone Mercado MD [Primary Care Provider] - As per Instructions
[2017-02-04] MEDS ORDERED: PROPOFOL 200 MG/20 ML VIAL ONE (18:07)
[2017-02-04 18:36] VITALS: RESP 16
[2017-02-04] MEDS ORDERED: PROPOFOL 200 MG/20 ML VIAL IVP ONE (18:36)
[2017-02-04 19:35] VITALS: BP 153/72; PULSE 68; O2SAT 92
== END 2017-02-04 19:33 | disposition home or self-care (01) ==
LOC: EDUNIT#
PROC: 0SSBXZZ Reposition Left Hip Joint, External Approach (ICD-10-PCS; principal; 2017-02-04)
DX: T84.021A Dislocation of internal left hip prosthesis, initial encounter (principal); F17.200 Nicotine dependence, unspecified, uncomplicated; Z79.82 Long term (current) use of aspirin; Z96.642 Presence of left artificial hip joint; Y82.9 Unspecified medical devices associated with adverse incidents
CPT/HCPCS: 27265; 73502; 96374; 99152; 99285; J1170; J2704

== ENCOUNTER → 2017-07-08 | Outpatient (CLI) | payer OTHER | LOC: BMCIMAGING 09:22 | PROVIDERS: ATTEND General Practice | DX: S42.002D Fracture of unspecified part of left clavicle, subsequent encounter for fracture with routine healing (principal); M19.012 Primary osteoarthritis, left shoulder ==

== ENCOUNTER → 2018-11-14 | Outpatient (CLI) | payer OTHER | LOC: FCPNEURO 21:00 | PROVIDERS: ATTEND Psychiatry & Neurology Sleep Medicine | DX: G47.33 Obstructive sleep apnea (adult) (pediatric) (principal) ==

== ENCOUNTER → 2019-01-17 | Outpatient (CLI) | payer OTHER | LOC: BMCIMAGING 13:49 | PROVIDERS: ATTEND Internal Medicine Endocrinology, Diabetes & Metabolism | DX: Z13.820 Encounter for screening for osteoporosis (principal); M81.0 Age-related osteoporosis without current pathological fracture | CPT/HCPCS: 84402-90 ==